=== PATIENT | male | born 1995 ===

== ENCOUNTER 2018-08-09 15:09 | Emergency (ER) | payer SELFPAY ==
[2018-08-09 15:19] VITALS: BP 145/86
[2018-08-09] MEDS ORDERED: NORCO 7.5/325 ONE (15:31)
[2018-08-09] MEDS ORDERED: IBUPROFEN ONE (15:31)
[2018-08-09] MEDS ORDERED: IBUPROFEN PO ONE (15:36)
[2018-08-09] MEDS ORDERED: NORCO 7.5/325 PO ONE (15:36)
--- NOTE | 2018-08-09 15:54 | Emergency Department Report ---
ED Lower Extremity HPI - General Chief Complaint: Extremity Injury, Lower Stated Complaint: POSS BROKEN FOOT Time Seen by Provider: 08/09/18 15:29 Source: patient, family Mode of arrival: Wheelchair Limitations: Physical Limitation - History of Present Illness Initial Comments: Patient here complaining of left foot pain here for the 3 stump weighing 150 pounds fell on his foot today. Tender to palpate to first second third and fourth toe. Denies any numbness or tingling. Medical Officer Psychiatry service use due to patient is Wolof-speaking only. Pain is 8 out of 10 to his left foot achy and throbbing and. Patient reports that he cannot weight-bear to his left lower extremity due to pain and swelling. No medication taken prior to coming to the emergency room. Tetanus vaccine is up-to-date less than 5 years. MD Complaint: foot injury -: This evening Injury: Foot: Left (left foot injury and swelling) Type of Injury: blunt Place: work, street/outdoors Severity: severe Severity scale (0 -10): 8 Improves With: rest Worsens With: movement, palpation Context: direct blow Associated Symptoms: swelling, unable to bear weight. denies: snap/pop sensation, numbness, tingling Treatments Prior to Arrival: other (none) - Related Data Previous Rx's Medication Instructions Recorded Last Taken Type Acetaminophen/Codeine [Tylenol 1 tab PO Q6H PRN #12 tab 08/09/18 Unknown Rx /Codeine # 3 tab] Ibuprofen [Motrin] 800 mg PO Q8HR PRN #15 tablet 08/09/18 Unknown Rx Allergies Allergy/AdvReac Type Severity Reaction Status Date / Time No Known Allergies Allergy Unverified 08/09/18 15:15 ED Review of Systems ROS: Stated complaint: POSS BROKEN FOOT Other details as noted in HPI Constitutional: denies: chills, fever Respiratory: denies: cough, shortness of breath, wheezing Cardiovascular: denies: chest pain, palpitations, dyspnea on exertion, edema, syncope Gastrointestinal: denies: nausea, vomiting Musculoskeletal: joint swelling, arthralgia. denies: back pain, myalgia Skin: other (scratches the left foot) Neurological: denies: headache, weakness, numbness, paresthesias, abnormal gait ED Past Medical Hx - Past Medical History Previous Medical History?: No - Surgical History Past Surgical History?: No - Family History Family history: no significant - Social History Smoking Status: Current Every Day Smoker Substance Use Type: None - Medications Home Medications: Home Medications Medication Instructions Recorded Confirmed Last Taken Type Acetaminophen/Codeine [Tylenol 1 tab PO Q6H PRN #12 tab 08/09/18 Unknown Rx /Codeine # 3 tab] Ibuprofen [Motrin] 800 mg PO Q8HR PRN #15 tablet 08/09/18 Unknown Rx ED Physical Exam - General Limitations: Language Barrier, Physical Limitation General appearance: alert, in no apparent distress - Head Head exam: Present: atraumatic, normocephalic, normal inspection, other (normocephalic atraumatic) - Eye Eye exam: Present: normal appearance, PERRL, EOMI Pupils: Present: normal accommodation - ENT ENT exam: Present: normal exam, normal orophraynx, mucous membranes moist - Neck Neck exam: Present: normal inspection, full ROM, other (no C-spine tenderness). Absent: tenderness, lymphadenopathy - Respiratory Respiratory exam: Present: normal lung sounds bilaterally. Absent: respiratory distress, chest wall tenderness - Cardiovascular Cardiovascular Exam: Present: regular rate, normal rhythm, normal heart sounds - GI/Abdominal GI/Abdominal exam: Present: soft, normal bowel sounds. Absent: distended, tenderness, rigid, organomegaly, mass - Extremities Exam Extremities exam: Present: tenderness (tetanus palpate to left foot included in for second third and fourth toe.), normal capillary refill, joint swelling (left foot dorsal aspect), other (patient reports that he cannot ambulate due to pain and swelling.No cce. + 2 pulses in all extremities, no neurovascular compromise except left foot with swelling and bruising with small scratches, tenderness to palpate. No bony deformity noted.). Absent: normal inspection, full ROM (patient with limited range of motion to left foot due to pain and injury. He said it hurts when he moves his foot and toes.), pedal edema, calf tenderness - Expanded Lower Extremity Exam Left Hip exam: Present: normal inspection, full ROM, pelvic stability. Absent: tenderness, swelling, abrasion, laceration, ecchymosis, deformity, crepidus, dislocation, erythema, external rotation, internal rotation, shortening Upper Leg exam: Present: normal inspection, full ROM. Absent: tenderness, swelling, abrasion, laceration, ecchymosis, deformity, crepidus, dislocation, erythema Knee exam: Present: normal inspection, full ROM, full knee extension. Absent: tenderness, swelling, abrasion, laceration, ecchymosis, deformity, crepidus, dislocation, erythema, effusion, pain w/ pronation/supination, posterior draw sign, pain/laxity with valgus, pain/laxity with varus Lower Leg exam: Present: normal inspection, full ROM. Absent: tenderness, swelling, abrasion, laceration, ecchymosis, deformity, crepidus, dislocation, erythema, palpable cord, Daryl's sign Ankle exam: Present: normal inspection, full ROM. Absent: tenderness, swelling, abrasion, laceration, ecchymosis, deformity, crepidus, dislocation, erythema Foot/Toe exam: Present: tenderness (dorsal aspect of foot), swelling (dorsal aspect of foot), abrasion (scratch pineda. Left foot), ecchymosis (left dorsal aspect of foot including toes at 1, 2, 3 and 4). Absent: normal inspection, full ROM (Limited range of motion to the right foot due to pain and swelling after trauma), laceration, deformity, crepidus, dislocation, erythema, amputation, puncture wound, foreign body, calcaneal tenderness, tenderness at base of 5th metatarsal, nail avulsion, subungual hematoma Neuro vascular tendon exam: Present: no vascular compromise, motor deficit (motor movements for pain medication 2/5 and after pain medicine and pain control 4/5.), significant pain with passive ROM of distal joint. Absent: pulse deficit, abnormal cap refill, sensory deficit, tendon deficit, extremity cold to touch, pallor, abnormal 2-point discrimination, decreased fine/light touch, foot drop, peroneal nerve deficit Gait: Positive: antalgic - Back Exam Back exam: Present: normal inspection, full ROM. Absent: tenderness, CVA tenderness (R), CVA tenderness (L), muscle spasm, paraspinal tenderness, vertebral tenderness, rash noted - Neurological Exam Neurological exam: Present: alert, oriented X3, abnormal gait (abnormal gait limping noted to the left lower extremity due to injury), motor sensory deficit (no sensory deficit but positive motor deficit. Left lower extremity), reflexes normal (.) - Psychiatric Psychiatric exam: Present: normal affect, normal mood - Skin Skin exam: Present: warm, dry, intact, abrasion (multiple scratch pineda to left foot anteriorly) ED Course Vital Signs 08/09/18 08/09/18 08/09/18 15:16 15:37 15:38 Temperature 97.8 F Pulse Rate 87 Respiratory 18 18 18 Rate Blood Pressure 145/86 O2 Sat by Pulse 100 Oximetry - Reevaluation(s) Reevaluation #1: 08/09/18 16:51 Patient initially medicated with Motrin 800 mg and hydrocodone 5/325 one tablet by mouth emergency room for left foot pain after injury. Upper evaluation he still has some pain so I will give him another hydrocodone. 08/09/18 17:52 Reevaluation #2: 08/09/18 17:52 Patient given hydrocodone 5/325 mg one tablet by mouth for left foot pain. - Orthopedic Splinting/Casting Injury #1 Side: left Lower Extremity Injury Location: foot Lower Extremity Immobilizer: post-op shoe Other Orthopedic Equipment: crutches Additional Comments: Showed good color, sensation and movement in temperature to left foot and pulses are 2+ and bounding status post ED Lower Extremity MDM - Radiology Data Radiology results: report reviewed X-ray of left foot dictated by radiologist and report reviewed by myself. No acute findings noted. Findings [facility] [address] [place] [address] XRay Report Signed Patient: СВЕТЛАНА WHITNEY MR#: [id number] : 1995 Acct:[id number] Age/Sex: 23 / M ADM Date: 08/09/18 Loc: ED Attending Dr: Ordering Physician: RITA LINDO MD Date of Service: 08/09/18 Procedure(s): XR foot 3+V LT Accession Number(s): [id number] cc: RITA LINDO MD Fluoro Time In Minutes: FINAL REPORT EXAM: XR FOOT 3+V LT HISTORY: PAIN IN LEFT FOOT TECHNIQUE: 3 views of the left foot PRIORS: None. FINDINGS: There is no radiographic evidence of definite acute fracture or dislocation. No evidence of osseous lesion. Joint spaces are maintained. There is no evidence of significant degenerative arthrosis. IMPRESSION: No acute skeletal pathology Transcribed By: BAL Dictated By: ANT RUCKER MD Electronically Authenticated By: ANT RUCKER MD Signed Date/Time: 08/09/181755 DD/ 57 TD/TT: 08/09/181757 - Medical Decision Making 23-year-old male injured his left foot at work today. Medical Officer Psychiatry reported that patient had 150 pound log landed on his left foot. Patient reporting pain and that he cannot move his left foot because of pain. X-ray of left foot shows no acute fracture dislocation. Patient had mild soft tissue swelling with ecchymotic area to left foot including toes #1,2,3,4. He was given pain m edication and emergency room along with nausea medication, Benadryl and after reevaluation patient pain went down to fascia span and movement to the left lower extremity was better. Motor movement went to 4/5. Via [employer] footballer explained to patient has x-rays of the voice understanding and I also explained to him splinted choice and crutches. Patient was thought to use crutches by nursing here demonstrated use. No need for tetanus shot because he said his tetanus shot is up-to-date less than 5 years. Patient instructed to follow up with orthopedic doctor for further evaluation and treatment of contusion left foot. Vital signs stable and he is afebrile and pain is better and discharged home with his friend in stable condition with prescription for Tylenol 3 and ibuprofen. He voices understanding via [employer]ian rules footballer. - Differential Diagnosis FX, dislocation, strain, contusion, MSK pain Critical care attestation.: If time is entered above; I have spent that time in minutes in the direct care of this critically ill patient, excluding procedure time. ED Disposition Clinical Impression: Contusion of left foot Qualifiers: Encounter type: initial encounter Qualified Code(s): S90.32XA - Contusion of left foot, initial encounter Injury of left foot including toes Qualifiers: Encounter type: initial encounter Qualified Code(s): S99.922A - Unspecified injury of left foot, initial encounter Disposition: -01 TO HOME OR SELFCARE Is pt being admited?: No Does the pt Need Aspirin: No Condition: Stable Instructions: Crutch Instructions (ED), Foot Contusion (ED), Arthralgia (ED), RICE Therapy (ED) Additional Instructions: Please follow up with orthopedic doctor in 3 days regarding foot contusion after injury. Take Tylenol 3 for severe pain but please do not drive or operate heavy machinery while taking this medication and take Motrin for mild to moderate pain. No weight bearing to left lower extremity Please keep post op shoe on and to use seen by orthopedic doctor and directed otherwise If pain becomes worse, change in color of left foot, restriction in movement, please return to emergency room [place] Use crutches as directed See discharge instruction in Rice therapy Por favor, siga con el mdtyrel orcaleb en 3 talbot con respecto a la contusin del pie despus de lesin. [place] Tylenol 3 para el dolor nhan johnny por favor no conduzca ni opere maquinaria pesada mientras cameron silver medicamento y tome Motrin para el dolor leve a moderado. Angela n cojinete del peso a la extremidad ms baja izquierda Por favor, mantener post op zapato en y para usar visto por el mdico ortopdico y dirigido de lo contrario Si el dolor empeora, cambio en el color del pie gino, restriccin en el movimiento, por favor regrese a la ariadna de emergencias lo antes posible Use muletas elkin se indica Gardenia la instruccin de la descarga adentro terapia del arroz Prescriptions: Acetaminophen/Codeine [Tylenol /Codeine # 3 tab] 1 tab PO Q6H PRN #12 tab PRN Reason: moderate to severe pain Ibuprofen [Motrin] 800 mg PO Q8HR PRN #15 tablet PRN Reason: mild pain Referrals: [facility] [Outside] - 08/12/18 GRAEME ISABEL MD [Staff Physician] - 3-5 Days Forms: Work/School Release Form(ED) Print Language: [place] CITIZEN
[2018-08-09] MEDS ORDERED: NORCO 5/325 PO ONE (17:53)
[2018-08-09] MEDS ORDERED: BENADRYL IM ONE (17:53)
[2018-08-09] MEDS ORDERED: ZOFRAN ORAL LIQ PO ONE (17:53)
--- NOTE | 2018-08-09 17:56 | XRay Report ---
FINAL REPORT EXAM: XR FOOT 3+V LT HISTORY: PAIN IN LEFT FOOT TECHNIQUE: 3 views of the left foot PRIORS: None. FINDINGS: There is no radiographic evidence of definite acute fracture or dislocation. No evidence of osseous lesion. Joint spaces are maintained. There is no evidence of significant degenerative arthrosis. IMPRESSION: No acute skeletal pathology
[2018-08-09] MEDS ORDERED: ZOFRAN ODT PO ONE (18:03)
[2018-08-09] MEDS ORDERED: ZOFRAN ODT ONE (18:07)
== END 2018-08-09 18:58 | disposition home or self-care (01) ==
LOC: ED 15:09
DX: S90.32XA Contusion of left foot, initial encounter (principal); F17.200 Nicotine dependence, unspecified, uncomplicated; W20.8XXA Other cause of strike by thrown, projected or falling object, initial encounter; Y93.89 Activity, other specified; Y92.410 Unspecified street and highway as the place of occurrence of the external cause; Y99.8 Other external cause status
CPT/HCPCS: 73630; 96372; 99284; J1200; Q0162